=== PATIENT | female | born 1990 | race Two or more races ===

== ENCOUNTER 2019-10-03 00:42 | Emergency (ER) | payer MEDICAID, OTHER ==
[~2019-10-03] VITALS: Ht 152.4 cm; Wt 77.1 kg
[2019-10-03 00:51] VITALS: BP 125/78
== END 2019-10-03 01:30 | disposition left against medical advice (07) ==
LOC: EDBD 00:42 → ER 00:43
DX: G43.909 Migraine, unspecified, not intractable, without status migrainosus (principal); Z53.21 Procedure and treatment not carried out due to patient leaving prior to being seen by health care provider